=== PATIENT | female | born 1960 | race Caucasian/White ===

== ENCOUNTER 2025-05-28 14:15 | Emergency (ER) | payer BC, OTHER ==
[~2025-05-28] VITALS: Ht 160 cm; Wt 49.9 kg
[2025-05-28 14:15] VITALS: BP 146/63
[2025-05-28 15:20] LABS: CREATININE 0.7 mg/dL (0.6-1.3); SODIUM SERUM 146.0 mmol/L (136-145); UREA NITROGEN, BLOOD 9.0 mg/dL (7-18)
[2025-05-28 15:25] LABS: CREATINE KINASE, TOTAL 103.0 U/L (26-192)
[2025-05-28 15:26] LABS: ASPARTATE AMINOTRANSFERASE 16.0 U/L (15-37); TOTAL PROTEIN, SERUM 7.0 g/dL (6.4-8.2)
[2025-05-28 15:40] LABS: PLATELET COUNT (AUTO) 177 K/uL (179-408); RED BLOOD CELL COUNT(AUTO) 4.26 MIL/uL (3.63-4.92); RED CELL DISTRIBUTION WIDTH 13.8 % (12.3-17.7); WHITE BLOOD COUNT (AUTO) 6.7 K/uL (3.8-11.8)
[2025-05-28 15:41] VITALS: BP 131/66; O2SAT 98
== END 2025-05-28 16:41 | disposition home or self-care (01) ==
LOC: ER 14:15
DX: R53.1 Weakness (principal); T50.995A Adverse effect of other drugs, medicaments and biological substances, initial encounter; E78.00 Pure hypercholesterolemia, unspecified; G40.909 Epilepsy, unspecified, not intractable, without status epilepticus; Y92.89 Other specified places as the place of occurrence of the external cause
CPT/HCPCS: 36415; 83735; 85025; A4606; A4663